=== PATIENT | female | born 1955 | race Caucasian/White ===

== ENCOUNTER 2020-04-24 12:24 | Emergency (ER) | payer MEDICARE ==
[~2020-04-24] VITALS: Ht 157.5 cm; Wt 88.0 kg
== END 2020-04-24 13:58 | disposition home or self-care (01) ==
LOC: ER 12:33
DX: S62.002A Unspecified fracture of navicular [scaphoid] bone of left wrist, initial encounter for closed fracture (principal); W01.0XXA Fall on same level from slipping, tripping and stumbling without subsequent striking against object, initial encounter; Y93.01 Activity, walking, marching and hiking; Y92.008 Other place in unspecified non-institutional (private) residence as the place of occurrence of the external cause; I10 Essential (primary) hypertension; E11.9 Type 2 diabetes mellitus without complications; E78.5 Hyperlipidemia, unspecified
CPT/HCPCS: 99283

== ENCOUNTER 2022-01-05 12:03 | Inpatient (IN) | payer MEDICARE, OTHER ==
[~2022-01-05] VITALS: Ht 157.5 cm; Wt 88.0 kg
[2022-01-05] MEDS ORDERED: ONDANSETRON HCL INJ 2MG/ML 2ML 2 MG/ML VIAL IV STA ×2 (12:26→13:56)
[2022-01-05] MEDS ORDERED: Morphine 4mg INJECTION 4 MG/ML INJ IV ONE (12:30)
[2022-01-05 12:49] LABS: BASOPHILS % 0.5 % (0.0-1.0); EOSINOPHILS # (AUTO) 0.2 (0.0-0.4); EOSINOPHILS % 2.6 % (0.0-6.0); HEMATOCRIT 32.8 % (34.2-44.1); HEMOGLOBIN 11.5 g/dL (12.0-16.0); LYMPHOCYTES # (AUTO) 1.3 (1.0-3.2); LYMPHOCYTES % 14.8 % (18.0-39.1); MEAN CORPUSCULAR HEMOGLOBIN 32.9 pg (28-32); MEAN CORPUSCULAR HGB CONC 35.1 g/dL (31-35); MEAN CORPUSCULAR VOLUME 93.7 fL (81-99); MONOCYTES # (AUTO) 0.5 (0.2-0.8); MONOCYTES % 6.3 % (4.4-11.3); NEUTROPHILS # (AUTO) 6.4 (2.1-6.9); NEUTROPHILS % 74.5 % (38.7-80.0); PLATELET COUNT 210 x10e3/uL (140-360); RED CELL DISTRIBUTION WIDTH 12.8 % (11.7-14.4)
[2022-01-05 13:09] LABS: COLOR,URINE YELLOW (YELLOW)
[2022-01-05] MEDS ORDERED: METFORMIN HCL500 MG PO (13:10)
[2022-01-05 13:11] LABS: CLARITY,URINE CLOUDY (CLEAR); LEUKOCYTE ESTERASE ,URINE SMALL (NEGATIVE)
[2022-01-05 13:12] LABS: KETONES,URINE NEGATIVE (NEGATIVE); NITRITE,URINE NEGATIVE (NEGATIVE); PROTEIN,URINE DIPSTICK 1+ (NEGATIVE); URINE UROBILINOGEN 0.2 mg/dL (0.2 - 1)
[2022-01-05] MEDS ORDERED: GLIPIZIDE5 MG PO (13:15)
[2022-01-05] MEDS ORDERED: LORAZEPAM INJ 2 MG/ML VIAL IV ONE (13:15)
[2022-01-05] MEDS ORDERED: LOSARTAN POTAS100 MG PO (13:15)
[2022-01-05] MEDS ORDERED: LORAZEPAM 1 MG TAB PO ONE (13:15)
[2022-01-05] MEDS ORDERED: HYDROCHLOROTHIA25 MG PO (13:16)
[2022-01-05] MEDS ORDERED: ALTOPREV40 MG PO (13:16)
[2022-01-05 13:17] LABS: BACTERIA,URINE FEW /HPF; EPITHELIAL CELLS,URINE MANY /LPF; RBC,URINE 0-5 /HPF (0-5); WBC,URINE (MAN) 21-50 /HPF (0-5)
[2022-01-05] MEDS ORDERED: FERROUS SULFAT325 MG PO (13:18)
[2022-01-05 13:24] LABS: ALBUMIN 3.6 g/dL (3.5-5.0); ALBUMIN/GLOBULIN RATIO 1.1 (0.8-2.0); ANION GAP 15.8 mmol/L (8-16); CALCIUM 8.8 mg/dL (8.4-10.2); CREATININE, SERUM 1.82 mg/dL (0.57-1.11); POTASSIUM 3.8 mmol/L (3.5-5.1)
[2022-01-05] MEDS ORDERED: CEFEPIME 2 GM in SODIUM CHLORIDE 0.9% 100 ML IV ONE (15:15)
[2022-01-05 16:24] LABS: COLOR,URINE YELLOW (YELLOW)
[2022-01-05 16:25] LABS: CLARITY,URINE SL CLOUDY (CLEAR); KETONES,URINE TRACE (NEGATIVE); LEUKOCYTE ESTERASE ,URINE NEGATIVE (NEGATIVE); NITRITE,URINE NEGATIVE (NEGATIVE); PROTEIN,URINE DIPSTICK NEGATIVE (NEGATIVE); URINE UROBILINOGEN 0.2 mg/dL (0.2 - 1)
[2022-01-05 16:40] LABS: EPITHELIAL CELLS,URINE RARE /LPF
[2022-01-05 16:43] LABS: BACTERIA,URINE FEW /HPF; URIC ACID CRYSTALS,URINE MODERATE (FEW); WBC,URINE (MAN) 0-5 /HPF (0-5)
[2022-01-05 18:40] VITALS: BP 130/77
[2022-01-05 18:42] VITALS: BP 130/77
[2022-01-05 19:56] VITALS: BP 134/87
[2022-01-05 20:00] VITALS: BP 134/87
[2022-01-05] MEDS: SODIUM CHLORIDE 0.9% 1000ML 1,000 ML IV SCH (21:44)
[2022-01-05 22:34] VITALS: BP 134/87
[2022-01-06] VITALS (9 sets, daily range): BP systolic 120–138; BP diastolic 62–77
[2022-01-06] MEDS ORDERED: DEXTROSE 50% SYRINGE 50 ML IV PRN (07:30)
[2022-01-06] MEDS: INSULIN LISPRO 100 UNIT/1 ML 3ML VIAL SQ SCH ×4 (07:47→21:00)
[2022-01-06] MEDS ORDERED: ONDANSETRON HCL INJ 2MG/ML 2ML 2 MG/ML VIAL IV PRN (11:15)
[2022-01-06] MEDS ORDERED: ACETAMINOPHEN 325 MG TAB PO PRN (11:15)
[2022-01-06] MEDS: SODIUM CHLORIDE 0.9% 1000ML 1,000 ML IV SCH (11:18)
[2022-01-06 12:58] LABS: CHOL/HDL RATIO 4.7 (3.0-3.6)
[2022-01-07] VITALS (7 sets, daily range): BP systolic 114–144; BP diastolic 61–81
[2022-01-07] MEDS: SODIUM CHLORIDE 0.9% 1000ML 1,000 ML IV SCH ×2 (00:33→17:52)
[2022-01-07 05:21] LABS: BASOPHILS % 0.4 % (0.0-1.0); EOSINOPHILS # (AUTO) 0.2 (0.0-0.4); EOSINOPHILS % 2.9 % (0.0-6.0); HEMATOCRIT 33.2 % (34.2-44.1); HEMOGLOBIN 11.1 g/dL (12.0-16.0); LYMPHOCYTES # (AUTO) 1.2 (1.0-3.2); LYMPHOCYTES % 14.9 % (18.0-39.1); MEAN CORPUSCULAR HEMOGLOBIN 32.5 pg (28-32); MEAN CORPUSCULAR HGB CONC 33.4 g/dL (31-35); MONOCYTES # (AUTO) 0.5 (0.2-0.8); MONOCYTES % 5.8 % (4.4-11.3); NEUTROPHILS # (AUTO) 5.8 (2.1-6.9); NEUTROPHILS % 74.7 % (38.7-80.0); PLATELET COUNT 193 x10e3/uL (140-360); RED BLOOD COUNT 3.42 x10e6/uL (3.6-5.1); RED CELL DISTRIBUTION WIDTH 12.5 % (11.7-14.4)
[2022-01-07 05:23] LABS: MEAN CORPUSCULAR VOLUME 97.1 fL (81-99)
[2022-01-07 05:41] LABS: ANION GAP 15.7 mmol/L (8-16); CALCIUM 8.3 mg/dL (8.4-10.2); CREATININE, SERUM 1.37 mg/dL (0.57-1.11); POTASSIUM 3.7 mmol/L (3.5-5.1)
[2022-01-07] MEDS: INSULIN LISPRO 100 UNIT/1 ML 3ML VIAL SQ SCH ×4 (07:30→21:06)
[2022-01-07] MEDS ORDERED: IOPAMIDOL 300MG/ML 50ML INFUS..BTL IV ONE (07:51)
[2022-01-07] MEDS ORDERED: B&O 60MG R/S 60 MG SUPP PR ONE (07:51)
[2022-01-07] MEDS ORDERED: BELLADONNA/OPIUM 30 MG SUPP RC ONE (09:30)
[2022-01-07] MEDS ORDERED: ACETAMINOPHEN/CODEINE 300MG - 30MG TAB PO PRN (10:00)
[2022-01-07] MEDS ORDERED: PHENAZOPYRIDINE HCL 100 MG TAB PO PRN (10:00)
[2022-01-07] MEDS ORDERED: B&O 60MG R/S 60 MG SUPP PR PRN (10:00)
[2022-01-07] MEDS ORDERED: POVIDONE IODINE 0.05% 0.05 % ML PO ONE (12:14)
[2022-01-07] MEDS ORDERED: SEVOFLURANE INHAL SOLN 250 ML PEN BTL ONE (12:14)
[2022-01-07] MEDS ORDERED: ONDANSETRON HCL INJ 2MG/ML 2ML 2 MG/ML VIAL ONE (12:14)
[2022-01-07] MEDS ORDERED: PROPOFOL IV EMULSION 10 MG/ML 20 ML VIAL ONE (12:14)
[2022-01-07] MEDS ORDERED: LIDOCAINE HCL 2% LOCAL INJ 5 ML SDV VIAL INJ ONE (12:14)
[2022-01-07] MEDS ORDERED: FENTANYL CITRATE/PF 100MCG/2 ML INJ ONE (13:11)
[2022-01-08] VITALS: BP 113/58
[2022-01-08] MEDS: SODIUM CHLORIDE 0.9% 1000ML 1,000 ML IV SCH ×2 (02:39→14:55)
[2022-01-08 04:53] LABS: BASOPHILS % 0.5 % (0.0-1.0); EOSINOPHILS # (AUTO) 0.2 (0.0-0.4); EOSINOPHILS % 3.7 % (0.0-6.0); HEMATOCRIT 27.9 % (34.2-44.1); HEMOGLOBIN 9.5 g/dL (12.0-16.0); LYMPHOCYTES # (AUTO) 1.2 (1.0-3.2); LYMPHOCYTES % 20.1 % (18.0-39.1); MEAN CORPUSCULAR HEMOGLOBIN 32.2 pg (28-32); MEAN CORPUSCULAR HGB CONC 34.1 g/dL (31-35); MEAN CORPUSCULAR VOLUME 94.6 fL (81-99); MONOCYTES # (AUTO) 0.4 (0.2-0.8); MONOCYTES % 6.9 % (4.4-11.3); NEUTROPHILS % 67.6 % (38.7-80.0); PLATELET COUNT 162 x10e3/uL (140-360); RED BLOOD COUNT 2.95 x10e6/uL (3.6-5.1); RED CELL DISTRIBUTION WIDTH 12.5 % (11.7-14.4)
[2022-01-08 04:57] LABS: CREATININE, SERUM 0.98 mg/dL (0.57-1.11)
[2022-01-08 05:41] VITALS: BP 111/60
[2022-01-08] MEDS ORDERED: TYLENOL325 MG PO (07:54)
[2022-01-08] MEDS ORDERED: CEPHALEXIN500 MG PO (07:54)
[2022-01-08] MEDS: INSULIN LISPRO 100 UNIT/1 ML 3ML VIAL SQ SCH ×3 (08:30→16:30)
[2022-01-08 09:50] VITALS: BP 124/67
[2022-01-08 09:51] VITALS: BP 124/67
[2022-01-08 12:17] VITALS: BP 125/74
[2022-01-08] MEDS ORDERED: KETOROLAC TROME10 MG PO (15:46)
[2022-01-08] MEDS ORDERED: DITROPAN XL5 MG PO (15:47)
[2022-01-08 17:18] VITALS: BP 132/93
== END 2022-01-08 17:45 | disposition home or self-care (01) | DRG 661 ==
LOC: ER 12:17 → ERHOLD 16:20 → MED/SURG 18:23
PROVIDERS: ADMIT Internal Medicine; ATTEND Internal Medicine
PROC: BT141ZZ Fluoroscopy of Kidneys, Ureters and Bladder using Low Osmolar Contrast (ICD-10-PCS; 2022-01-07)
PROC: 0T778DZ Dilation of Left Ureter with Intraluminal Device, Via Natural or Artificial Opening Endoscopic (ICD-10-PCS; principal; 2022-01-07 08:55)
DX: N13.6 Pyonephrosis (principal); N17.9 Acute kidney failure, unspecified; D64.9 Anemia, unspecified; E66.9 Obesity, unspecified; E11.9 Type 2 diabetes mellitus without complications; E78.5 Hyperlipidemia, unspecified; I10 Essential (primary) hypertension; G56.03 Carpal tunnel syndrome, bilateral upper limbs; K80.20 Calculus of gallbladder without cholecystitis without obstruction; N39.41 Urge incontinence; N81.10 Cystocele, unspecified; N95.2 Postmenopausal atrophic vaginitis; A63.0 Anogenital (venereal) warts; N32.89 Other specified disorders of bladder; Z68.35 Body mass index [BMI] 35.0-35.9, adult; Z96.641 Presence of right artificial hip joint; Z20.822 Contact with and (suspected) exposure to COVID-19; Z79.84 Long term (current) use of oral hypoglycemic drugs
CPT/HCPCS: 36415; 74018; 74176; 74420; 80048; 80053; 80061; 81001; 82948; 83036; 83970; 84550; 85025; 87086; 99284; C1758; C1769; C1874; J0692; J0696; J2001; J2270; J2405; J3010; J7030; J7050

== ENCOUNTER 2022-01-19 19:28 | Observation (INO) | payer MEDICARE, OTHER ==
[~2022-01-19] VITALS: Ht 309.9 cm; Wt 88.0 kg
[~2022-01-19 19:28] MED LIST: ALTOPREV40 MG PO; CEPHALEXIN500 MG PO; DITROPAN XL5 MG PO; FERROUS SULFAT325 MG PO; GLIPIZIDE5 MG PO; HYDROCHLOROTHIA25 MG PO; KETOROLAC TROME10 MG PO; LOSARTAN POTAS100 MG PO; METFORMIN HCL500 MG PO; TYLENOL325 MG PO
[2022-01-19 20:20] LABS: BASOPHILS % 0.6 % (0.0-1.0); EOSINOPHILS # (AUTO) 0.2 (0.0-0.4); EOSINOPHILS % 3.5 % (0.0-6.0); HEMATOCRIT 31.6 % (34.2-44.1); HEMOGLOBIN 11.2 g/dL (12.0-16.0); LYMPHOCYTES # (AUTO) 1.3 (1.0-3.2); LYMPHOCYTES % 20.5 % (18.0-39.1); MEAN CORPUSCULAR HEMOGLOBIN 32.4 pg (28-32); MEAN CORPUSCULAR HGB CONC 35.4 g/dL (31-35); MEAN CORPUSCULAR VOLUME 91.3 fL (81-99); MONOCYTES # (AUTO) 0.6 (0.2-0.8); MONOCYTES % 8.8 % (4.4-11.3); NEUTROPHILS # (AUTO) 4.3 (2.1-6.9); PLATELET COUNT 212 x10e3/uL (140-360); RED BLOOD COUNT 3.46 x10e6/uL (3.6-5.1); RED CELL DISTRIBUTION WIDTH 11.6 % (11.7-14.4)
[2022-01-19 20:48] LABS: ALANINE AMINOTRANSFERASE 16 IU/L (0-55); ALBUMIN/GLOBULIN RATIO 1.7 (0.8-2.0); ALKALINE PHOSPHATASE 62 IU/L (40-150); ANION GAP 17.7 mmol/L (8-16); BLOOD UREA NITROGEN 10 mg/dL (7-26); BUN/CREATININE RATIO 11 (6-25); CALCIUM 8.5 mg/dL (8.4-10.2); CARBON DIOXIDE 23 mmol/L (22-29); CHLORIDE 87 mmol/L (98-107); CREATININE, SERUM 0.91 mg/dL (0.57-1.11); GLUCOSE 108 mg/dL (74-118); SODIUM 125 mmol/L (136-145)
[2022-01-19 20:54] LABS: POTASSIUM 2.7 mmol/L (3.5-5.1)
[2022-01-19] MEDS ORDERED: POTASSIUM CHLORIDE 20MEQ/100ML 200 ML IV STA (21:00)
[2022-01-19 21:11] LABS: CLARITY,URINE CLEAR (CLEAR); COLOR,URINE YELLOW (YELLOW); KETONES,URINE NEGATIVE (NEGATIVE); LEUKOCYTE ESTERASE ,URINE TRACE (NEGATIVE); NITRITE,URINE NEGATIVE (NEGATIVE); PROTEIN,URINE DIPSTICK NEGATIVE (NEGATIVE); URINE UROBILINOGEN 0.2 mg/dL (0.2 - 1)
[2022-01-19] MEDS ORDERED: POTASSIUM CHLORIDE 20MEQ/100ML 100 ML ONE (21:13)
[2022-01-19] MEDS ORDERED: SODIUM CHLORIDE 0.9% 1000ML 1,000 ML IV STA (21:17)
[2022-01-19 21:24] LABS: EPITHELIAL CELLS,URINE MODERATE /LPF; YEAST,URINE MODERATE
[2022-01-19 21:25] LABS: BACTERIA,URINE MODERATE /HPF
[2022-01-19 21:26] LABS: RENAL EPITHELIAL CELLS,URINE FEW
[2022-01-19] MEDS ORDERED: SODIUM CHLORIDE 0.9% 1000ML 1,000 ML ONE (21:31)
[2022-01-19 23:27] LABS: ALBUMIN/GLOBULIN RATIO 1.6 (0.8-2.0); ANION GAP 17.3 mmol/L (8-16); CALCIUM 7.9 mg/dL (8.4-10.2); CREATININE, SERUM 0.83 mg/dL (0.57-1.11)
[2022-01-19 23:29] LABS: POTASSIUM 3.3 mmol/L (3.5-5.1)
[2022-01-20] MEDS: SODIUM CHLORIDE 0.9% 1000ML 1,000 ML IV SCH ×2 (00:28→07:41)
[2022-01-20 01:22] LABS: CREATINE KINASE 185 IU/L (29-168)
[2022-01-20] MEDS ORDERED: POTASSIUM CHLORIDE 20MEQ/100ML 100 ML ONE (03:31)
[2022-01-20 05:25] LABS: BASOPHILS % 0.7 % (0.0-1.0); EOSINOPHILS # (AUTO) 0.1 (0.0-0.4); EOSINOPHILS % 3.1 % (0.0-6.0); HEMATOCRIT 30.3 % (34.2-44.1); HEMOGLOBIN 10.6 g/dL (12.0-16.0); LYMPHOCYTES % 22.3 % (18.0-39.1); MEAN CORPUSCULAR HEMOGLOBIN 32.2 pg (28-32); MEAN CORPUSCULAR VOLUME 92.1 fL (81-99); MONOCYTES # (AUTO) 0.4 (0.2-0.8); MONOCYTES % 9.4 % (4.4-11.3); NEUTROPHILS # (AUTO) 2.9 (2.1-6.9); NEUTROPHILS % 63.8 % (38.7-80.0); PLATELET COUNT 209 x10e3/uL (140-360); RED BLOOD COUNT 3.29 x10e6/uL (3.6-5.1); RED CELL DISTRIBUTION WIDTH 11.5 % (11.7-14.4)
[2022-01-20 05:36] LABS: ALBUMIN 3.8 g/dL (3.5-5.0); ALBUMIN/GLOBULIN RATIO 1.6 (0.8-2.0); ANION GAP 16.8 mmol/L (8-16); CALCIUM 8.3 mg/dL (8.4-10.2); CREATININE, SERUM 0.79 mg/dL (0.57-1.11); POTASSIUM 3.8 mmol/L (3.5-5.1)
[2022-01-20 05:42] LABS: CREATINE KINASE 148 IU/L (29-168)
[2022-01-20] MEDS ORDERED: CEFTRIAXONE 1 GM VIAL IM STA (13:14)
[2022-01-20] MEDS ORDERED: OXYBUTYNIN CHLORIDE XL 5 MG TAB PO PRN (13:15)
[2022-01-20] MEDS ORDERED: ACETAMINOPHEN 325 MG TAB PO PRN (13:15)
[2022-01-20] MEDS ORDERED: LEVOFLOXACIN250 MG PO (13:20)
[2022-01-20] MEDS ORDERED: SODIUM CHLORIDE1 GM PO (13:20)
[2022-01-20 13:47] VITALS: BP 117/84
[2022-01-20] MEDS ORDERED: FERROUS SULFATE 325 MG TAB PO SCH (17:00)
[2022-01-20] MEDS ORDERED: SIMVASTATIN 20 MG TAB PO SCH (21:00)
== END 2022-01-20 13:47 | disposition home or self-care (01) ==
LOC: ER 19:30 → ERHOLD 01-20 00:04
PROVIDERS: ADMIT Internal Medicine; ATTEND Internal Medicine
DX: E87.1 Hypo-osmolality and hyponatremia (principal); N39.0 Urinary tract infection, site not specified; E87.6 Hypokalemia; E86.0 Dehydration; E11.9 Type 2 diabetes mellitus without complications; E78.5 Hyperlipidemia, unspecified; I10 Essential (primary) hypertension; Z20.822 Contact with and (suspected) exposure to COVID-19; Z79.84 Long term (current) use of oral hypoglycemic drugs
CPT/HCPCS: 36415 ×2; 70450; 71045; 80053 ×2; 81001; 82550 ×2; 82553 ×2; 82948; 83690; 83880; 84484 ×2; 85025 ×2; 85379; 93005; 99284; G0378; J0696; J3480 ×2; J7030 ×2; U0002

== ENCOUNTER → 2022-10-25 | Outpatient (CLI) | payer MEDICARE ==
[~2022-10-25] MED LIST changes: +LEVOFLOXACIN250 MG PO; +SODIUM CHLORIDE1 GM PO
== END ==
LOC: RAD 10:43
PROVIDERS: ATTEND Urology
DX: N02.0 Recurrent and persistent hematuria with minor glomerular abnormality (principal)
CPT/HCPCS: 74018

== ENCOUNTER 2024-04-20 16:23 | Emergency (ER) | payer MEDICARE ==
[~2024-04-20] VITALS: Ht 160 cm; Wt 79.4 kg
[2024-04-20 16:35] VITALS: PULSE 78; RESP 16; TEMP 99
[2024-04-20 17:17] LABS: BASOPHILS # (AUTO) 0.1 (0.0-0.1); BASOPHILS % 0.7 % (0.0-1.0); EOSINOPHILS # (AUTO) 0.2 (0.0-0.4); EOSINOPHILS % 2.5 % (0.0-6.0); HEMATOCRIT 33.7 % (34.2-44.1); HEMOGLOBIN 10.9 g/dL (12.0-16.0); LYMPHOCYTES # (AUTO) 1.7 (1.0-3.2); LYMPHOCYTES % 22.4 % (18.0-39.1); MEAN CORPUSCULAR HEMOGLOBIN 31.3 pg (28-32); MEAN CORPUSCULAR HGB CONC 32.3 g/dL (31-35); MEAN CORPUSCULAR VOLUME 96.8 fL (81-99); MONOCYTES # (AUTO) 0.6 (0.2-0.8); MONOCYTES % 7.3 % (4.4-11.3); NEUTROPHILS % 66.4 % (38.7-80.0); PLATELET COUNT 265 x10e3/uL (140-360); RED BLOOD COUNT 3.48 x10e6/uL (3.6-5.1); RED CELL DISTRIBUTION WIDTH 12.2 % (11.7-14.4); WHITE BLOOD COUNT 7.51 x10e3/uL (4.8-10.8)
[2024-04-20 17:35] LABS: ALBUMIN/GLOBULIN RATIO 1.3 (0.8-2.0); ANION GAP 14.4 mmol/L (8-16); BILIRUBIN,TOTAL 0.2 mg/dL (0.2-1.2); CALCIUM 9.4 mg/dL (8.4-10.2); CREATININE, SERUM 1.26 mg/dL (0.57-1.11); POTASSIUM 4.4 mmol/L (3.5-5.1)
[2024-04-20 17:36] LABS: BILIRUBIN,URINE NEGATIVE (NEGATIVE); CLARITY,URINE CLEAR (CLEAR); COLOR,URINE YELLOW (YELLOW); GLUCOSE, URINE 500 (NEGATIVE); KETONES,URINE NEGATIVE (NEGATIVE); LEUKOCYTE ESTERASE ,URINE SMALL (NEGATIVE); NITRITE,URINE NEGATIVE (NEGATIVE); PH,URINE 6.5 (5 - 7); PROTEIN,URINE DIPSTICK NEGATIVE (NEGATIVE); URINE UROBILINOGEN 0.2 mg/dL (0.2 - 1)
[2024-04-20 17:41] LABS: TROPONIN I 0.006 ng/mL (0-0.300)
[2024-04-20 17:47] LABS: BACTERIA,URINE FEW /HPF; EPITHELIAL CELLS,URINE FEW /LPF; RBC,URINE 0-5 /HPF (0-5)
[2024-04-20] MEDS: DICYCLOMINE HCL 20 MG/2 ML VIAL IM ONE (18:45)
[2024-04-20] MEDS: ONDANSETRON HCL INJ 2MG/ML 2ML 2 MG/ML VIAL IV STA (18:45)
[2024-04-20] MEDS: KETOROLAC TROMETHAMINE 30 MG/ML VIAL IV STA (18:45)
[2024-04-20] MEDS ORDERED: ONDANSETRON ODT4 MG SL (20:36)
[2024-04-20] MEDS ORDERED: PANTOPRAZOLE SO40 MG PO (20:36)
[2024-04-20] MEDS ORDERED: DICYCLOMINE HCL20 MG PO (20:36)
[2024-04-20 20:45] VITALS: BP 100/60; PULSE 67; RESP 18; TEMP 98.5; O2SAT 98
== END 2024-04-20 20:45 | disposition home or self-care (01) ==
LOC: ER 18:19
DX: R50.9 Fever, unspecified (principal); R10.11 Right upper quadrant pain; K80.50 Calculus of bile duct without cholangitis or cholecystitis without obstruction; K80.20 Calculus of gallbladder without cholecystitis without obstruction; I12.9 Hypertensive chronic kidney disease with stage 1 through stage 4 chronic kidney disease, or unspecified chronic kidney disease; E11.22 Type 2 diabetes mellitus with diabetic chronic kidney disease; N18.9 Chronic kidney disease, unspecified; K57.90 Diverticulosis of intestine, part unspecified, without perforation or abscess without bleeding; E78.5 Hyperlipidemia, unspecified
CPT/HCPCS: 36415; 74176; 76705; 80053; 81001; 82550; 83690; 84484; 85025; 93005; 99284; J0500; J1885; J2405; J2470

== ENCOUNTER → 2024-05-20 | Day surgery (SDC) | payer MEDICARE ==
[2024-05-13 14:40] LABS: BASOPHILS % 0.5 % (0.0-1.0); EOSINOPHILS # (AUTO) 0.3 (0.0-0.4); EOSINOPHILS % 3.6 % (0.0-6.0); HEMATOCRIT 39.3 % (34.2-44.1); HEMOGLOBIN 12.2 g/dL (12.0-16.0); LYMPHOCYTES # (AUTO) 1.8 (1.0-3.2); LYMPHOCYTES % 24.7 % (18.0-39.1); MONOCYTES # (AUTO) 0.6 (0.2-0.8); MONOCYTES % 7.5 % (4.4-11.3); NEUTROPHILS # (AUTO) 4.7 (2.1-6.9); NEUTROPHILS % 63.2 % (38.7-80.0); PLATELET COUNT 221 x10e3/uL (140-360); RED BLOOD COUNT 3.93 x10e6/uL (3.6-5.1); RED CELL DISTRIBUTION WIDTH 12.9 % (11.7-14.4); WHITE BLOOD COUNT 7.42 x10e3/uL (4.8-10.8)
[2024-05-13 15:04] LABS: ALBUMIN 4.4 g/dL (3.5-5.0); ALBUMIN/GLOBULIN RATIO 1.6 (0.8-2.0); ANION GAP 15.3 mmol/L (8-16); BILIRUBIN,TOTAL 0.2 mg/dL (0.2-1.2); CALCIUM 9.6 mg/dL (8.4-10.2); CREATININE, SERUM 1.04 mg/dL (0.57-1.11); POTASSIUM 4.3 mmol/L (3.5-5.1); TOTAL PROTEIN 7.1 g/dL (6.5-8.1)
[~2024-05-20] MED LIST changes: +ACETAMINOPHEN 1000 MG/100 ML 100 ML IV ONE; +AUGMENTIN 500-1 EACH PO; +DEXAMETHASONE SOD PHOS INJ 4 MG/ML SDV ONE; +DICYCLOMINE HCL20 MG PO; +EPHEDRINE SULFATE INJ 50 MG/ML VIAL ONE; +FARXIGA10 MG PO; +FENTANYL CITRATE/PF 100MCG/2 ML INJ ONE; +HYDROCODONE/APAP 7.5MG-325MG 1 EA TAB ONE; +LIDOCAINE HCL 2% LOCAL INJ 5 ML SDV VIAL INJ ONE; +MAGNESIUM400 MG PO; +MIDAZOLAM HCL 2 MG/2 ML VIAL ONE; +ONDANSETRON ODT4 MG SL; +PANTOPRAZOLE SO40 MG PO; +PHENYLEPHRINE HCL 1% 10 MG/ML VIAL ONE; +POTASSIUM CITR10 MEQ PO; +PROPOFOL IV EMULSION 10 MG/ML 20 ML VIAL ONE; +ROCURONIUM BROMIDE 0 ML IV ONE; +ROCURONIUM BROMIDE 1 ML IV ONE; +SEVOFLURANE INHAL SOLN 250 ML PEN BTL ONE; +SODIUM CHLORIDE 0.9% 100 ML ONE; +SUCCINYLCHOLINE CHLORIDE 20 MG/ML 10ML VIAL ONE; +SUGAMMADEX SODIUM 200 MG/2 ML VIAL IV ONE; +ZESTRIL10 MG PO
[2024-05-20] MEDS: ONDANSETRON HCL INJ 2MG/ML 2ML 2 MG/ML VIAL ONE (06:18)
[2024-05-20] MEDS: LACTATED RINGER'S 1,000 ML ONE (06:19)
[2024-05-20 10:19] VITALS: TEMP 98.1
[2024-05-20] MEDS: FENTANYL CITRATE/PF 100MCG/2 ML INJ ONE (10:33)
[2024-05-20] MEDS: HYDROCODONE/APAP 7.5MG-325MG 1 EA TAB PO ONE (11:10)
[2024-05-20 11:35] VITALS: BP 118/62; PULSE 61; RESP 16; O2SAT 99
== END | disposition home or self-care (01) ==
LOC: OR 05:07
PROVIDERS: ATTEND Surgery
DX: K80.10 Calculus of gallbladder with chronic cholecystitis without obstruction (principal); K42.9 Umbilical hernia without obstruction or gangrene; K76.0 Fatty (change of) liver, not elsewhere classified; K82.8 Other specified diseases of gallbladder; K21.9 Gastro-esophageal reflux disease without esophagitis; E11.9 Type 2 diabetes mellitus without complications; I10 Essential (primary) hypertension; E78.5 Hyperlipidemia, unspecified; N20.0 Calculus of kidney; M06.9 Rheumatoid arthritis, unspecified; Z91.048 Other nonmedicinal substance allergy status; Z01.810 Encounter for preprocedural cardiovascular examination; Z01.812 Encounter for preprocedural laboratory examination; Z01.818 Encounter for other preprocedural examination; Z79.84 Long term (current) use of oral hypoglycemic drugs
CPT/HCPCS: 36415; 47562; 71046; 80053; 85025; 88304; 93005; C1766; J0131; J1100; J2003; J2371; J2405; J2704; J3010; J7050; J7121; J0330; J2250

== ENCOUNTER 2024-11-15 18:18 | Emergency (ER) | payer MEDICARE ==
[~2024-11-15] VITALS: Ht 162.6 cm; Wt 73.5 kg
[~2024-11-15 18:18] MED LIST changes: -ACETAMINOPHEN 1000 MG/100 ML 100 ML IV ONE; -DEXAMETHASONE SOD PHOS INJ 4 MG/ML SDV ONE; -EPHEDRINE SULFATE INJ 50 MG/ML VIAL ONE; -FENTANYL CITRATE/PF 100MCG/2 ML INJ ONE; -HYDROCODONE/APAP 7.5MG-325MG 1 EA TAB ONE; -LIDOCAINE HCL 2% LOCAL INJ 5 ML SDV VIAL INJ ONE; -MIDAZOLAM HCL 2 MG/2 ML VIAL ONE; -PHENYLEPHRINE HCL 1% 10 MG/ML VIAL ONE; -PROPOFOL IV EMULSION 10 MG/ML 20 ML VIAL ONE; -ROCURONIUM BROMIDE 0 ML IV ONE; -ROCURONIUM BROMIDE 1 ML IV ONE; -SEVOFLURANE INHAL SOLN 250 ML PEN BTL ONE; -SODIUM CHLORIDE 0.9% 100 ML ONE; -SUCCINYLCHOLINE CHLORIDE 20 MG/ML 10ML VIAL ONE; -SUGAMMADEX SODIUM 200 MG/2 ML VIAL IV ONE
[2024-11-15 19:17] VITALS: PULSE 63; RESP 16; TEMP 97.8
[2024-11-15] MEDS: SODIUM CHLORIDE 0.9% 1000ML 1,000 ML IV STA (19:35)
[2024-11-15] MEDS: ONDANSETRON HCL INJ 2MG/ML 2ML 2 MG/ML VIAL IV STA (19:36)
[2024-11-15] MEDS: Morphine 4mg INJECTION 4 MG/ML INJ IV STA (19:36)
[2024-11-15 19:43] LABS: BASOPHILS % 0.5 % (0.0-1.0); EOSINOPHILS % 2.2 % (0.0-6.0); LYMPHOCYTES % 21.9 % (18.0-39.1); MONOCYTES % 6.5 % (4.4-11.3); NEUTROPHILS % 68.3 % (38.7-80.0); RED CELL DISTRIBUTION WIDTH 13.3 % (11.7-14.4)
[2024-11-15 19:45] LABS: LEUKOCYTE ESTERASE ,URINE TRACE (NEGATIVE); PROTEIN,URINE DIPSTICK NEGATIVE (NEGATIVE); URINE UROBILINOGEN 0.2 mg/dL (0.2 - 1)
[2024-11-15 19:57] LABS: WBC,URINE (MAN) 0-5 /HPF (0-5)
[2024-11-15 19:58] LABS: EPITHELIAL CELLS,URINE FEW /LPF
[2024-11-15 20:05] LABS: EST GLOMERULAR FILTRATION RATE 35.0 ML/MIN (>=60)
[2024-11-15] MEDS ORDERED: IOPAMIDOL 370 MG/ML 100 ML INFUS..BTL INJ ONE (21:02)
[2024-11-15] MEDS ORDERED: ONDANSETRON ODT4 MG PO (22:43)
[2024-11-15] MEDS ORDERED: PEPCID20 MG PO (22:43)
[2024-11-15] MEDS: FAMOTIDINE 20 MG/2 ML VIAL IV STA (23:04)
[2024-11-16 02:43] VITALS: BP 138/79; PULSE 59; RESP 16; TEMP 98; O2SAT 100
== END 2024-11-16 00:06 | disposition home or self-care (01) ==
LOC: ER 18:25
DX: R10.13 Epigastric pain (principal); R11.0 Nausea; I10 Essential (primary) hypertension; E11.9 Type 2 diabetes mellitus without complications; E78.5 Hyperlipidemia, unspecified; M19.90 Unspecified osteoarthritis, unspecified site; N18.9 Chronic kidney disease, unspecified
CPT/HCPCS: 36415; 74177; 80053; 81001; 82550; 83690; 84484; 85025; 93005; 99284; J1308; J2270; J2405; J7030; Q9967

== ENCOUNTER → 2024-12-17 | Day surgery (SDC) | payer MEDICARE ==
[2024-12-09 12:54] LABS: BASOPHILS % 0.6 % (0.0-1.0); EOSINOPHILS % 2.6 % (0.0-6.0); LYMPHOCYTES % 27.0 % (18.0-39.1); MONOCYTES % 7.5 % (4.4-11.3); NEUTROPHILS % 61.9 % (38.7-80.0); RED CELL DISTRIBUTION WIDTH 13.7 % (11.7-14.4)
[~2024-12-17] MED LIST changes: +FENTANYL CITRATE/PF 100MCG/2 ML INJ ONE; +HYOSCYAMINE SULFATE 0.5 MG/ML INJ ONE; +JANUVIA100 MG PO; +LACTATED RINGER'S 1,000 ML ONE; +LIDOCAINE HCL 2% LOCAL INJ 5 ML SDV VIAL INJ ONE; +NITROFURANTOIN100 MG PO; +ONDANSETRON ODT4 MG PO; +PEPCID20 MG PO; +PROPOFOL IV EMULSION 50 ML IV ONE
[2024-12-17 10:42] VITALS: TEMP 97
[2024-12-17 11:10] VITALS: BP 135/72; PULSE 71; RESP 15; O2SAT 100
== END | disposition home or self-care (01) ==
LOC: OR 07:55
PROVIDERS: ATTEND Internal Medicine Gastroenterology
DX: K29.00 Acute gastritis without bleeding (principal); B96.81 Helicobacter pylori [H. pylori] as the cause of diseases classified elsewhere; Z86.0100 Personal history of colon polyps, unspecified; K29.50 Unspecified chronic gastritis without bleeding; K20.90 Esophagitis, unspecified without bleeding; K64.8 Other hemorrhoids; I10 Essential (primary) hypertension; E78.5 Hyperlipidemia, unspecified; E11.9 Type 2 diabetes mellitus without complications; N20.0 Calculus of kidney; Z91.048 Other nonmedicinal substance allergy status; Z01.810 Encounter for preprocedural cardiovascular examination; Z01.812 Encounter for preprocedural laboratory examination; Z79.84 Long term (current) use of oral hypoglycemic drugs; Z79.899 Other long term (current) drug therapy
CPT/HCPCS: 36415 ×2; 43239; 45378; 82948; 85025; 93005; J1980; J2003; J2470; J2704; J3010; J7121